=== PATIENT | female | born 1975 | race Caucasian/White ===

== ENCOUNTER 2018-12-09 22:56 | Inpatient (IN) | payer OTHER ==
[~2018-12-09] VITALS: Ht 149.9 cm; Wt 99.8 kg
[2018-12-09 23:00] VITALS: BP 80/46
[2018-12-09 23:55] LABS: BASOPHILS 1.3 % (0.0-2.0); EOSINOPHILS 3.1 % (0.0-3.0); HEMATOCRIT 42.2 % (37.0-47.0); HEMOGLOBIN 14.8 gm/dL (12.0-15.0); LYMPHOCYTES 34.9 % (24.0-44.0); MCH 34.8 pg (26.0-34.0); MCV 99.4 fL (80.0-100.0); MONOCYTES 7.5 % (1.0-8.0); PLATELET COUNT 190 thou/uL (150-400); POLYS 53.2 % (36.0-66.0); RBC 4.25 mil/uL (4.20-5.00); RDW 13.5 % (10.5-14.5); WBC 9.4 thou/uL (4.0-11.0)
[2018-12-10] VITALS (30 sets, daily range): BP systolic 93–133; BP diastolic 52–93
[2018-12-10 00:01] LABS: ANION GAP 10 mmol/L (7-16); BUN 10 mg/dL (7-18); CALCIUM 8.7 mg/dL (8.5-10.1); CHLORIDE 104 mmol/L (98-107); CO2 27 mmol/L (21-32); CREATININE 0.6 mg/dL (0.6-1.0); GLUCOSE 118 mg/dL (74-106); SODIUM 141 mmol/L (136-145)
[2018-12-10 00:05] LABS: APTT 26.4 Seconds (24.5-32.8); PROTIME 10.1 Seconds (9.3-11.4)
[2018-12-10 00:10] LABS: ALBUMIN 3.2 g/dL (3.4-5.0); SALICYLATE < 2.8 mg/dL (2.8-20.0); SGOT 27 U/L (15-37); SGPT 37 U/L (30-65); TOTAL BILIRUBIN 0.6 mg/dL (<0.1-1.0)
--- NOTE | 2018-12-10 00:22 | NUR ---
DR. DENNIS CALLED POISON CONTROL FOR PT
[2018-12-10 01:19] LABS: AMP/METHAMP Negative (Negative); BARBITURATES Negative (Negative); BENZODIAZEPINES Negative (Negative); COCAINE Negative (Negative); METHADONE Negative (Negative); OPIATES Negative (Negative); PCP Negative (Negative)
--- NOTE | 2018-12-10 02:00 | NUR ---
44 Y/O FEMALE ADMITTED TO ICU WITH ACCIDENTAL TYLENOL OVERDOSE. PT IS AWAKE AND ALERT. DIEHL NEURO INTACT. SINUS RHYTHM. ACELYLCYSTEINE IVPB INFUSING ORDERED. COOPERATIVE. UP TO TOILET. VOIDING. DENIES PAIN. PT ANXIOUS TO GET HOME WITH HER KIDS. WILL CONT TO MONITOR.
[2018-12-10 03:32] LABS: CALCIUM 7.7 mg/dL (8.5-10.1); CREATININE 0.6 mg/dL (0.6-1.0); POTASSIUM 3.4 mmol/L (3.5-5.1); TOTAL BILIRUBIN 0.3 mg/dL (<0.1-1.0); TOTAL PROTEIN 5.8 g/dL (6.4-8.2)
--- NOTE | 2018-12-10 08:03 | EKG ---
[place] [address] [facility] [place] [address] ELECTROCARDIOGRAM REPORT Name: YUDITH FISHER Room #: 237-P ADM IN M.R.#: [id number] ������������������ Admission: 12/10/18 ������������������ Attend Phys: Long Gonsales Discharge: ������������������ Date of : 77 Report #: [id number] ����������������������������������������������������������������� [id number] THIS REPORT FOR: //name// [facility] ED Test Date: 2018-12-10 Test Time: 00:00:09 Pat Name: YUDITH FISHER Department: Room: 237 Gender: F Scientist/Engineer: [email or web address] : 1975 Requested By: Emerson Richey Order Number: [id number] MD: Mike Mcdaniel Measurements Intervals [place] Rate: 72 P: 48 VT: 128 QRS: 36 QRSD: 114 T: 39 QT: 404 QTc: 443 Interpretive Statements Sinus rhythm Early R-wave progression No previous ECG available for comparison Electronically Signed On 12-10-2018 8:03:05 CDT by Mike Mcdaniel [email or web address] ��������������������������������������������� <ELECTRONICALLY SIGNED> ���������������������������������������� By: Mike Mcdaniel MD, [facility] ��������������������������������������������� 12/10/18 0803 0000 0000 Mike Mcdaniel MD, FACC /EPI
--- NOTE | 2018-12-10 08:27 | NUR ---
PT RESTING QUIETLY. SLEPT AT INTERVALS TONIGHT. VOIDED 1500 CC URINE. STATES I JUST HAVE TO GO HOME TODAY TO BE WITH MY KIDS THEY ARE ALONE. PT REFUSED TO GIVE ANY FAMILY CONTACT PHONE NO DUE TO HER BEING A PRIVATE person. WILL CONT TO MONITOR CLOSELY.
[2018-12-10] MEDS ORDERED: TRAMADOL 50 MG50 MG PO (08:46)
[2018-12-10] MEDS ORDERED: FLEXERIL PO (08:46)
--- NOTE | 2018-12-10 09:09 | NUR ---
RD consult received for pt with hx hypoglycemia. Admit with acetaminophen overdose. ICU rounds, pt wanting to leave AMA. On regular diet, BG 75. Likely dc soon. Low nutrition risk.
--- NOTE | 2018-12-10 11:11 | NUR ---
ASSESSMENTS DOCUMENTED. PT ALERT AND ORIENTED. READY TO GO HOME. IV FLUIDS INFUSING. VSS. RE-DRAW OF TYLENOL LEVEL COMMUNICATED TO DR. LEBRON. ORDER SFOR DISCHARGE. IV TAKEN OUT. TELEMONITOR OFF. DISCHARGE SUMMARY REVIEWED AND SENT HOME WITH PATIENT. SCRIPTS GIVEN. EDUCATED ABOUT MEDICATIONS AND TO TAKE ONLY PRESCRIBED. PT AGREEABLE.
--- NOTE | 2018-12-12 13:18 | EKG ---
[place] [address] [facility] [place] [address] ELECTROCARDIOGRAM REPORT Name: YUDITH FISHER Room #: 237-[facility] IN M.R.#: [id number] ������������������ Admission: 12/10/18 ������������������ Attend Phys: Long Gonsales Discharge: 12/10/18 ������������������ Date of : 77 Report #: [id number] ����������������������������������������������������������������� [id number] THIS REPORT FOR: //name// Test Date: 2018-12-10 Test Time: 07:19:43 Pat Name: YUDITH FISHER Department: Room: 237 Gender: F Designer/Writer: LOU : 1975 Requested By: Mike Mdcaniel Order Number: [id number] MD: Mike Mcdaniel Measurements Intervals [place] Rate: 73 P: 38 [place]: 128 QRS: 42 QRSD: 105 T: 45 QT: 396 QTc: 437 Interpretive Statements Sinus rhythm No significant abnormality Compared to ECG 12/10/2018 00:00:09 No significant change was found Electronically Signed On 12-12-2018 13:18:08 CDT by Mike Mcdaniel [email or web address] ��������������������������������������������� <ELECTRONICALLY SIGNED> ���������������������������������������� By: Mike Mcdaniel MD, [facility] ��������������������������������������������� 12/12/18 1318 8 8 Mike Mcdaniel MD, FAC /EPI
== END 2018-12-10 10:31 | disposition home or self-care (01) | DRG 918 ==
LOC: ER 22:56 → ICU 12-10 00:29 → EROBS 12-10 00:29 → ICU 12-10 01:45
PROVIDERS: Emergency Medicine; Nurse Practitioner Family; ADMIT Hospitalist
DX: T39.1X1A Poisoning by 4-Aminophenol derivatives, accidental (unintentional), initial encounter (principal); I10 Essential (primary) hypertension; E78.00 Pure hypercholesterolemia, unspecified; M19.90 Unspecified osteoarthritis, unspecified site; F17.210 Nicotine dependence, cigarettes, uncomplicated; M54.30 Sciatica, unspecified side; M54.9 Dorsalgia, unspecified; G89.29 Other chronic pain; F10.10 Alcohol abuse, uncomplicated; Z71.6 Tobacco abuse counseling; Z71.41 Alcohol abuse counseling and surveillance of alcoholic; Y92.89 Other specified places as the place of occurrence of the external cause
CPT/HCPCS: 10078

== ENCOUNTER 2019-10-01 00:34 | Emergency (ER) | payer OTHER ==
[~2019-10-01] VITALS: Ht 154.9 cm; Wt 86.2 kg
[~2019-10-01 00:34] MED LIST: FLEXERIL PO; TRAMADOL 50 MG50 MG PO
[2019-10-01] MEDS ORDERED: TRAMADOL 50 MG50 MG PO (01:11)
[2019-10-01] MEDS ORDERED: NAPROSYN500 MG PO (01:11)
[2019-10-01 02:20] VITALS: BP 124/81
== END 2019-10-01 02:20 | disposition home or self-care (01) ==
LOC: ER 00:34
DX: M54.42 Lumbago with sciatica, left side (principal); G89.29 Other chronic pain; E78.00 Pure hypercholesterolemia, unspecified; F17.210 Nicotine dependence, cigarettes, uncomplicated; V49.49XA Driver injured in collision with other motor vehicles in traffic accident, initial encounter; Y92.89 Other specified places as the place of occurrence of the external cause; Y93.89 Activity, other specified; Y99.8 Other external cause status

== ENCOUNTER 2019-10-28 19:50 | Emergency (ER) | payer OTHER ==
[~2019-10-28] VITALS: Ht 152.4 cm; Wt 80.7 kg
[~2019-10-28 19:50] MED LIST changes: +NAPROSYN500 MG PO
[2019-10-28 20:20] LABS: URINE BILIRUBIN NEGATIVE (Negative); URINE BLOOD TRACE (Negative); URINE CLARITY CLEAR; URINE COLOR YELLOW; URINE GLUCOSE-RANDOM* NEGATIVE (Negative); URINE KETONES NEGATIVE (Negative); URINE LEUKOCYTES-REFLEX NEGATIVE (Negative); URINE NITRITE-REFLEX NEGATIVE (Negative); URINE PROTEIN (DIPSTICK) NEGATIVE (Negative); URINE SPECIFIC GRAVITY 1.025 (1.005-1.035)
[2019-10-28] MEDS ORDERED: DOXYCYCLINE 10100 MG PO (22:45)
[2019-10-28 23:07] VITALS: BP 148/78
== END 2019-10-28 23:08 | disposition home or self-care (01) ==
LOC: ER 19:50
PROVIDERS: Nurse Practitioner Family
DX: N73.9 Female pelvic inflammatory disease, unspecified (principal); E78.00 Pure hypercholesterolemia, unspecified; E66.9 Obesity, unspecified; G89.29 Other chronic pain; M54.9 Dorsalgia, unspecified; F17.210 Nicotine dependence, cigarettes, uncomplicated